=== PATIENT | female | born 2000 | race Native Hawaiian/Other Pacific Islander ===

== ENCOUNTER 2024-07-16 18:25 | Emergency (ER) | payer OTHER ==
[~2024-07-16] VITALS: Ht 144.8 cm; Wt 93.8 kg
[2024-07-16 20:02] LABS: BASO % 0.1 % (0.0-1.0); HEMATOCRIT 35.5 % (36.0-47.0); LYMPH # 0.7 10^3/uL (1.5-5.0); LYMPH % 8.3 % (24.0-44.0); MEAN CORPUSCULAR HEMOGLOBIN 27.4 pg (27.0-33.0); MEAN CORPUSCULAR VOLUME 88.3 fl (80.0-96.0); MONO # 0.6 10^3/uL (0.0-0.8); MONO % 7.7 % (2.0-8.0); NEUTROPHILS % 83.3 % (36.0-66.0); PLATELET COUNT, AUTOMATED 351 10^3/uL (150-450); RED BLOOD COUNT 4.02 10^6/uL (4.00-5.40); WHITE BLOOD COUNT 8.4 10^3/uL (4.0-10.0)
[2024-07-16 20:15] LABS: INR 0.94; PARTIAL THROMBOPLASTIN TIME 24.6 SECONDS (24.8-34.2); PROTHROMBIN TIME 12.9 SECONDS (12.5-14.5)
[2024-07-16 20:21] LABS: LIPASE 29 U/L (12-53)
[2024-07-16 20:23] LABS: ALBUMIN 2.5 G/DL (3.2-5.2); ALKALINE PHOSPHATASE 206 U/L (35-104); ALT/SGPT 33 U/L (7.0-40); AST/SGOT 32 U/L (<34); BILIRUBIN,DIRECT 0.2 MG/DL (<0.4); BILIRUBIN,TOTAL 0.6 MG/DL (0.3-1.2); BLOOD UREA NITROGEN 6 MG/DL (9-23); CALCIUM LEVEL 9.4 MG/DL (8.5-10.1); CARBON DIOXIDE LEVEL 21 MMOL/L (20-31); CHLORIDE LEVEL 106 MMOL/L (98-107); CREATININE FOR GFR 0.52 MG/DL (0.55-1.30); GLOMERULAR FILTRATION RATE > 60.0 (>60); GLUCOSE, FASTING 67 MG/DL (60-100); POTASSIUM SERUM 4.1 MMOL/L (3.5-5.1); SODIUM LEVEL 137 MMOL/L (136-145)
[2024-07-16] MEDS: NS (Normal Saline) 0.9% 1,000 ML IV ONE (20:44)
[2024-07-16] MEDS: ONDANSETRON 4MG 2ML VIAL IV ONE (20:47)
[2024-07-16 21:12] LABS: KETONE, URINE AUTO RFX 2+ mg/dL (NEGATIVE); MUCUS, URINE RFX SMALL (NEGATIVE); NITRITE, URINE AUTO RFX NEGATIVE (NEGATIVE); RBC, URINE AUTO RFX 1 /HPF (0-3); SQUAM EPITHELIAL CELL UR AURFX 6 /HPF (0-6); WBC, URINE AUTO RFX 2 /HPF (0-3)
[2024-07-16 21:13] LABS: LEUKOCYTE ESTERASE UR AUTO RFX TRACE (NEGATIVE)
[2024-07-16] MEDS ORDERED: CEPH500C PO (21:59)
[2024-07-16] MEDS: CEPHALEXIN 500 MG CAP PO ONE (22:05)
[2024-07-16 22:13] VITALS: BP 140/72; TEMP 99.5; O2SAT 100
== END 2024-07-16 22:14 | disposition home or self-care (01) ==
LOC: M ED 18:25 → EDBD 18:25 → M ED 22:14
DX: O9A.213 Injury, poisoning and certain other consequences of external causes complicating pregnancy, third trimester (principal); O23.93 Unspecified genitourinary tract infection in pregnancy, third trimester; O21.9 Vomiting of pregnancy, unspecified; Z3A.00 Weeks of gestation of pregnancy not specified; W00.0XXA Fall on same level due to ice and snow, initial encounter; Y92.89 Other specified places as the place of occurrence of the external cause; Y93.89 Activity, other specified; Y99.9 Unspecified external cause status
CPT/HCPCS: 80048; 80076; 81001; 83690; 84702; 85025; 85610; 85730; 86850; 86870; 86900; 86901; 87086; 87486; 87581; 87633; 87798; 96361; 96374; 99284; J2405